=== PATIENT | female | born 1985 | race African-American/Black ===

== ENCOUNTER → 2019-04-27 | Outpatient (CLI) | payer OTHER ==
[~2019-04-27] MED LIST: ACETAMINOPHEN325 M1 PO; AMOXICILLIN400 MG PO; AMOXICILLIN500 M1 PO; APAP W/CODEINE1 TA2 PO; BENADRYL25 MG PO; DARVOCET-N 1001 EACH PO; NOHOMEMEDICATIONS; NORCO 5-325 TA1 EACH PO; PRENATAL; SERTRALINE HCL100 MG PO; UNKNOWN ANTIBIOTIC; ZOFRAN ODT4 MG PO
== END | disposition home or self-care (01) ==
LOC: RAD 09:12
DX: Z31.41 Encounter for fertility testing (principal); Z88.2 Allergy status to sulfonamides; Z88.8 Allergy status to other drugs, medicaments and biological substances; Z79.899 Other long term (current) drug therapy